=== PATIENT | female | born 1990 | race Two or more races ===

== ENCOUNTER 2017-11-14 00:04 | Emergency (ER) | payer MEDICAID ==
[2017-11-14] VITALS (15 sets, daily range): BP systolic 104–130; BP diastolic 57–84
[~2017-11-14] VITALS: Ht 167.6 cm; Wt 77.1 kg
[2017-11-14] MEDS ORDERED: Methocarbamol 750mg tab ORAL ONE (00:30)
[2017-11-14] MEDS ORDERED: Tylenol #3 tab (300mg/30mg) ORAL ONE (00:30)
--- NOTE | 2017-11-14 01:16 | Emergency Room Report ---
History of Present Illness General Chief Complaint: Lower Extremity Injury Source: Patient Present Illness HPI Patient presents with reports of left leg pain Reports that just prior to arrival she was running There was some mechanical trip and fall Patient presents with pain to the lateral and medial aspect of the upper leg she also describes some pain to the inguinal area Also to the mid lower leg tibial region Denies any pain to the patella Pain is worse with fully extending the leg Denies any abdominal pain denies any lapse of consciousness Allergies: Coded Allergies: No Known Allergies (Unverified , 11/14/17) Patient History Past Medical History: see triage record Pertinent Family History: none Reviewed Nursing Documentation: PMH: Agreed; PSxH: Agreed Nursing Documentation-PMH Past Medical History: No Stated History Review of Systems All Other Systems: negative except mentioned in HPI Physical Exam Vital Signs Date Time Temp Pulse Resp B/P (MAP) Pulse Ox O2 Delivery O2 Flow Rate FiO2 11/14/17 00:28 98.0 67 18 116/70 97 Room Air 98.1 Sp02 EP Interpretation: reviewed, normal General Appearance: well appearing, no apparent distress Head: normocephalic, atraumatic Eyes: bilateral eye PERRL, bilateral eye EOMI ENT: hearing grossly normal, normal pharynx, TMs + canals normal, uvula midline Neck: full range of motion, supple, no meningismus, no bony tend Respiratory: lungs clear, normal breath sounds, no rhonchi, no respiratory distress, no retraction, no accessory muscle use Cardiovascular #1: normal peripheral pulses, regular rate, rhythm, no edema, no gallop, no JVD, no murmur Gastrointestinal: normal bowel sounds, non tender, soft, no mass, no organomegaly, non-distended, no guarding, no hernia, no pulsatile mass, no rebound Genitourinary: no CVA tenderness Musculoskeletal: other - has left leg bent at approximately 30 on the left side. Patella is freely mobile and nontender on palpation. There are no signs of any ecchymosis or swelling. Patient has increased discomfort with fully extending the left leg also some discomfort on palpation of the left inguinal area, no obvious herniation no obvious other swelling Neurologic: oriented x3, responsive, sensory intact Psychiatric: mood/affect normal Skin: normal color, no rash, warm/dry, palpation normal Lymphatic: normal inspection, no adenopathy Procedures Joint Reduction Joint Reduction : Consent: Written Joint Reduction Site: other - Left hip Procedural Sedation: Yes Reduction Attempts: Other - Four Pre-Procedure NV Exam: Yes Post-Procedure NV Exam: Yes Post Joint Reduction Film: joint not reduced Patient Tolerated: Well Complications: None Progress After appropriate sedation we had attempt by traction and countertraction on the left hip however there was no clinical reduction and the procedure was terminated Procedural Sedation Consent: Written Time out called at: 04:03 Pre-Sedation Assessment: Plan for Sedation Discuss Airway Assessment (Malampati): I Heart: normal Lungs: normal Abdomen: normal Extremities: normal Procedures/Plans: Closed Reduction Plan for Moderate Sedation: Propofol ASA Score: I Start Time: 04:10 End Time: 04:22 Communication: No Apparent Limitation Mental Status: Awake Respiration: Unlabored Skin Condition: WNL Abdomen: WNL Nausea: NO Vomiting: NO Additional Comments: Total [id number] time of 19 minutes from time out to the end of procedure Medical Decision Making Diagnostic Impression: Primary Impression: Fracture of femoral head Additional Impression: Displaced fracture of head of femur ER Course Please refer to the reduction attempt along with procedural sedation note for full specifics At this time the findings of the CT were shared with on-call orthopedics. He feels that this fracture is complex and requires higher level of care and requesting transfer to [facility] At this time contact is made with [facility] We were notified that there was no capacity at [facility] has also been contacted We did at a later time received information that [facility] was able to accept the patient and patient transferred for higher level of care Labs Test 11/14/17 01:15 11/14/17 06:10 Urine HCG, Qualitative Negative (NEGATIVE) White Blood Count 14.6 K/UL (4.8-10.8) Red Blood Count 4.07 M/UL (4.20-5.40) Hemoglobin 12.2 G/DL (12.0-16.0) Hematocrit 34.9 % (37.0-47.0) Mean Corpuscular Volume 86 FL (80-99) Mean Corpuscular Hemoglobin 30.0 PG (27.0-31.0) Mean Corpuscular Hemoglobin Concent 35.1 G/DL (32.0-36.0) Red Cell Distribution Width 11.6 % (11.6-14.8) Platelet Count 224 K/UL (150-450) Mean Platelet Volume 8.5 FL (6.5-10.1) Neutrophils (%) (Auto) % (45.0-75.0) Lymphocytes (%) (Auto) % (20.0-45.0) Monocytes (%) (Auto) % (1.0-10.0) Eosinophils (%) (Auto) % (0.0-3.0) Basophils (%) (Auto) % (0.0-2.0) Differential Total Cells Counted 100 Neutrophils % (Manual) 93 % (45-75) Lymphocytes % (Manual) 2 % (20-45) Monocytes % (Manual) 5 % (1-10) Eosinophils % (Manual) 0 % (0-3) Basophils % (Manual) 0 % (0-2) Band Neutrophils 0 % (0-8) Platelet Estimate Adequate Platelet Morphology Normal Red Blood Cell Morphology Normal Prothrombin Time 10.3 SEC (9.30-11.50) Prothromb Time International Ratio 1.0 (0.9-1.1) Activated Partial Thromboplast Time 25 SEC (23-33) Sodium Level 135 MMOL/L (136-145) Potassium Level 3.9 MMOL/L (3.5-5.1) Chloride Level 101 MMOL/L (98-107) Carbon Dioxide Level 25 MMOL/L (21-32) Anion Gap 9 mmol/L (5-15) Blood Urea Nitrogen 14 mg/dL (7-18) Creatinine 0.6 MG/DL (0.55-1.30) Estimat Glomerular Filtration Rate > 60 mL/min (>60) Glucose Level 137 MG/DL (74-106) Calcium Level 8.2 MG/DL (8.5-10.1) Total Bilirubin 0.3 MG/DL (0.2-1.0) Aspartate Amino Transf (AST/SGOT) 21 U/L (15-37) Alanine Aminotransferase (ALT/SGPT) 25 U/L (12-78) Alkaline Phosphatase 73 U/L (46-116) Total Creatine Kinase 221 U/L (26-308) Creatine Kinase MB 3.6 NG/ML (0.0-3.6) Creatine Kinase MB Relative Index 1.6 Total Protein 7.5 G/DL (6.4-8.2) Albumin 3.9 G/DL (3.4-5.0) Globulin 3.6 g/dL Albumin/Globulin Ratio 1.1 (1.0-2.7) EKG Diagnostic Results Rate: normal Rhythm: NSR ST Segments: no acute changes Rhythm Strip Diag. Results EP Interpretation: yes Rate: 77 Rhythm: NSR, no PVC's, no ectopy Chest X-Ray Diagnostic Results Chest X-Ray Diagnostic Results : Chest X-Ray Ordered: Yes # of Views/Limited/Complete: 1 View Indication: Chest Pain EP Interpretation: Yes Interpretation: no consolidation, no effusion, no pneumothorax Impression: No acute disease Electronically Signed by: Jair Mann DO Other X-Ray Diagnostic Results Other X-Ray Diagnostic Results #1: X-Ray ordered: Pelvic initial # of Views/Limited Vs Complete: 1 View Indication: Pain EP Interpretation: Yes Interpretation: no soft tissue swelling, other - Posterior dislocation femoral head, no obvious fracture on the x-ray, no soft tissue swelling Impression: Other - Fracture dislocation femoral head Electronically Signed by: Jair Mann DO Other X-Ray Diagnostic Results #2: X-Ray ordered: Pelvic post reduction attempt # of Views/Limited Vs Complete: 1 View Indication: Pain - Post reduction attempt Interpretation: no soft tissue swelling, other - Similar fracture dislocation still present Impression: Other - Fracture dislocation still present Electronically Signed by: Jair Mann DO CT/MRI/US Diagnostic Results CT/MRI/US Diagnostic Results : Impression CT pelvic: Posterior dislocation of left femoral head comminuted fracture of the left femoral head with multiple fragments in the joint space Last Vital Signs Date Time Temp Pulse Resp B/P (MAP) Pulse Ox O2 Delivery O2 Flow Rate FiO2 11/14/17 01:12 98.0 11/14/17 00:28 67 18 116/70 97 Room Air Status: improved Disposition: XFER SHT-TRM HOSP Condition: Serious Jair Mann DO Nov 14, 2017 01:16
[2017-11-14] MEDS ORDERED: Propofol 200mg/20ml IV ONE (03:52)
[2017-11-14] MEDS ORDERED: Ketorolac 30mg Inj IV ONE (05:15)
[2017-11-14] MEDS ORDERED: Morphine Sulfate 4mg/ml Inj (IV USE ONLY) IVP ONE (05:15)
[2017-11-14] MEDS ORDERED: Sodium Chloride 500ML 500 ML IV ONE (05:47)
[2017-11-14 06:32] LABS: ANION GAP 9 mmol/L (5-15); BLOOD UREA NITROGEN 14 mg/dL (7-18); CALCIUM 8.2 MG/DL (8.5-10.1); CARBON DIOXIDE 25 MMOL/L (21-32); CHLORIDE 101 MMOL/L (98-107); CREATININE 0.6 MG/DL (0.55-1.30); POTASSIUM 3.9 MMOL/L (3.5-5.1); SODIUM 135 MMOL/L (136-145)
[2017-11-14 06:36] LABS: HEMATOCRIT 34.9 % (37.0-47.0); HEMOGLOBIN 12.2 G/DL (12.0-16.0); MEAN CORPUSCULAR VOLUME 86 FL (80-99); PLATELET COUNT 224 K/UL (150-450); RED BLOOD COUNT 4.07 M/UL (4.20-5.40); RED CELL DISTRIBUTION WIDTH 11.6 % (11.6-14.8); WHITE BLOOD COUNT 14.6 K/UL (4.8-10.8)
[2017-11-14 06:45] LABS: ALANINE AMINOTRANSFERASE 25 U/L (12-78); ALBUMIN 3.9 G/DL (3.4-5.0); ALBUMIN/GLOBULIN RATIO 1.1 (1.0-2.7); ALKALINE PHOSPHATASE 73 U/L (46-116); ASPARTATE AMINO TRANSFERASE 21 U/L (15-37); BILIRUBIN,TOTAL 0.3 MG/DL (0.2-1.0); CKMB 3.6 NG/ML (0.0-3.6); CREATINE KINASE 221 U/L (26-308)
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
--- NOTE | 2017-11-14 11:46 | Diagnostic Imaging Report ---
Indication: Dyspnea Comparison: None A single view chest radiograph was obtained. Findings: Cardiomediastinal appearance is within normal limits for age. Pulmonary vascularity is appropriate. The diaphragmatic contour is smooth and costophrenic angles are sharp. No pleural effusions are identified. The bones are unremarkable. Impression: No acute findings
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
--- NOTE | 2017-11-14 11:48 | Diagnostic Imaging Report ---
Indication: Pain Findings: 2 views of the left femur were obtained. Superior dislocation of the left hip demonstrated. This has been reevaluated with CT. There is no fracture of the femoral neck or remainder of the shaft of the femur identified. IMPRESSION: Dislocated left hip
--- NOTE | 2017-11-14 16:09 | Cardiology Report ---
APPROVED REPORT EKG Measurement Heart [id number] Normal sinus rhythm Normal ECG
[2017-11-15] MEDS ORDERED: Propofol 200mg/20ml IV ONE (02:15)
== END 2017-11-14 11:47 | disposition short-term general hospital (02) ==
LOC: EDBD 00:04 → EMR 00:58 → EDBEDREQ 04:55 → 3E 05:10 → UNDOADMIN 05:10 → EDBEDREQ 05:23 → EMR 11:47
DX: S72.052A Unspecified fracture of head of left femur, initial encounter for closed fracture (principal); W01.0XXA Fall on same level from slipping, tripping and stumbling without subsequent striking against object, initial encounter; Y92.9 Unspecified place or not applicable
CPT/HCPCS: 27268; 36415; 71045; 72170; 72192; 73552; 80053; 81025; 82550; 82553; 85007; 85025; 85610; 85730; 93005; 96374; 96375; 99285; J1885; J2270; J2405; J2704; J7040